=== PATIENT | female | born 1990 | race Caucasian/White ===

== ENCOUNTER 2017-07-08 18:11 | Emergency (ER) | payer OTHER ==
[~2017-07-08] VITALS: Ht 162.6 cm; Wt 79.4 kg
[2017-07-08] MEDS ORDERED: DICLOFENAC SODI75 MG PO (21:03)
[2017-07-08] MEDS ORDERED: CYCLOBENZAPRINE10 MG PO (21:03)
== END 2017-07-08 21:10 | disposition home or self-care (01) ==
LOC: ED 18:11
DX: M54.5 Low back pain (principal)
CPT/HCPCS: 99283